=== PATIENT | male | born 1950 | race Caucasian/White ===

== ENCOUNTER 2018-11-25 22:08 | Emergency (ER) | payer MEDICARE ==
[~2018-11-25] VITALS: Ht 172.7 cm; Wt 108.9 kg
--- NOTE | 2018-11-25 22:47 | NUR ---
Dr. Baron at bedside for MSE.
[2018-11-25] MEDS ORDERED: HYDROCODONE/APAP 5-325MG TABLET ONE (22:56)
[2018-11-25] MEDS ORDERED: HYDROCODONE/APAP 5-325MG TABLET PO ONE (23:00)
[2018-11-25] MEDS ORDERED: ONDANSETRON ODT 4 MG TAB.RAPDIS SL ONE (23:00)
--- NOTE | 2018-11-25 23:00 | NUR ---
Pt states he is nauseous. MD notified.
[2018-11-25] MEDS ORDERED: ONDANSETRON ODT 4 MG TAB.RAPDIS ONE (23:01)
--- NOTE | 2018-11-25 23:02 | NUR ---
Xray at bedside.
--- NOTE | 2018-11-26 00:10 | NUR ---
Patient discharged to home in stable conditon. Written and verbal after care instructions given. Patient verbalizes understanding of instructions. Patient out of ER via wheelchair, no acute signs of distress, VSS, all belongings taken, accompanied by , no falls noted, patient to be driven home by son via private vehicle.
[2018-11-26 00:11] VITALS: BP 174/93
== END 2018-11-26 00:12 | disposition home or self-care (01) ==
LOC: ER 22:10
DX: M25.552 Pain in left hip (principal); I10 Essential (primary) hypertension; E11.9 Type 2 diabetes mellitus without complications
CPT/HCPCS: 73502; A4663; Q0162